=== PATIENT | female | born 1955 | race Caucasian/White ===

== ENCOUNTER 2020-04-11 18:20 | Emergency (ER) | payer OTHER ==
[~2020-04-11] VITALS: Ht 165.1 cm; Wt 74.8 kg
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
--- NOTE | 2020-04-11 18:29 | NUR ---
AUTUMNP PA AT BEDSIDE FOR EVAL.
[2020-04-11] MEDS ORDERED: ACETAMINOPHEN 325 MG TABLET PO ONE (18:30)
--- NOTE | 2020-04-11 19:08 | NUR ---
TOOK OVER PT CARE. PT IN BED ON MONITOR AND PULSE OX. RR EVEN AND UNLABORED. PT ASKED FOR PAIN MEDICATIO. PAIN MEDICATION GIVEN TO PT. PT ON THE PHONE WITH FAMILY. VSS.
[2020-04-11] MEDS ORDERED: ACETAMINOPHEN 325 MG TABLET ONE (19:10)
--- NOTE | 2020-04-11 19:15 | NUR ---
REPORT GIVEN TO ОЛЬГА SANFORD FOR DEEPAK.
--- NOTE | 2020-04-11 19:50 | NUR ---
EMT AT BEDSIDE FOR LA WRAP ON STOMACH. PT ASKED.
--- NOTE | 2020-04-11 19:53 | NUR ---
Patient discharged to home in stable condition. Written and verbal after care instructions given. Patient verbalizes understanding of instruction and RX. Pt picked up by family. vss. Denies pain.
[2020-04-11 19:54] VITALS: BP 138/76
== END 2020-04-11 20:04 | disposition home or self-care (01) ==
LOC: ER 18:22
DX: S00.03XA Contusion of scalp, initial encounter (principal); S50.312A Abrasion of left elbow, initial encounter; S09.8XXA Other specified injuries of head, initial encounter; R07.89 Other chest pain; R51 Headache; V49.49XA Driver injured in collision with other motor vehicles in traffic accident, initial encounter; Y93.89 Activity, other specified; Y92.488 Other paved roadways as the place of occurrence of the external cause; Y99.8 Other external cause status
CPT/HCPCS: 70450-TC; 71100-TC